=== PATIENT | female | born 1930 | race Caucasian/White ===

== ENCOUNTER 2017-06-06 10:50 | Inpatient (IN) | payer OTHER, MEDICARE ==
[~2017-06-06] VITALS: Ht 152.4 cm; Wt 72.0 kg
[~2017-06-06 10:50] MED LIST: LOTREL 5/201 CAPSULE PO; VITAMIN D2000 INTUN PO
[2017-06-06 11:26] LABS: BASOPHIL (%) 0.8 % (0-1); EOSINOPHIL (%) 3.4 % (0-5); EOSINOPHIL COUNT 0.2 K/uL (0-0.3); HEMATOCRIT 42.7 % (36.0-46.0); HEMOGLOBIN 14.3 G/DL (11.9-15.5); IMMATURE GRANULOCYTE (%) 0.2 % (0.0-0.7); LYMPHOCYTE (%) 21.6 % (15-42); LYMPHOCYTE COUNT 1.2 K/uL (1.0-2.8); MCHC 33.5 G/DL (30.0-36.0); MCV 89.5 FL (83-99); MONOCYTE (%) 6.9 % (3-12); MONOCYTE COUNT 0.4 K/uL (0-0.8); NEUTROPHIL (%) 67.1 % (45-76); NEUTROPHIL COUNT 3.6 K/uL (1.8-6.4); PLATELET COUNT 222 K/uL (156-360); RBC DIS.WIDTH-CV 13.6 % (11.8-14.6); RBC DIS.WIDTH-SD 44.7 % (39-53); RED BLOOD COUNT 4.77 M/uL (3.80-5.20); WHITE BLOOD COUNT 5.3 K/uL (4.1-10.2)
[2017-06-06 11:37] LABS: CHLORIDE 106 mEq/L (99-109); POTASSIUM 4.2 mEq/L (3.7-5.4); SODIUM 145 mEq/L (136-147)
[2017-06-06 11:39] LABS: GLUCOSE 106 mg/dL (70-99)
[2017-06-06 11:43] LABS: CREATININE 0.8 mg/dL (0.6-1.3); GFR ESTIMATE (CALCULATED) > 59 mL/min/
[2017-06-06 11:44] LABS: UREA NITROGEN (BUN) 21 mg/dL (9-23)
[2017-06-06 12:04] LABS: APPEARANCE CLEAR ((CLEAR)); BILIRUBIN NEGATIVE; BLOOD NEGATIVE; COLOR YELLOW ((YELLOW)); GLUCOSE (STRIP) NEGATIVE; KETONES 5; LEUKOCYTES NEGATIVE; NITRITE NEGATIVE; PROTEIN (STRIP) NEGATIVE; SPECIFIC GRAVITY 1.012 (1.000-1.030); UROBILINOGEN 0.2 MG/DL (0.2-1.0)
[2017-06-06] MEDS ORDERED: CALTRATE 600 +1 EAC1 PO (13:10)
[2017-06-06] MEDS ORDERED: LO-DOSE ASPIRIN81 M2 PO (13:10)
[2017-06-06] MEDS ORDERED: CALCITRATE + D1 EACH PO (13:57)
[2017-06-06 14:53] VITALS: BP 165/72
[2017-06-06 14:54] LABS: HDL CHOLESTEROL 71 MG/DL (Desirable>=50); LDL CHOLESTEROL 141 mg/dL (Desirable<100); NON-HDL CHOLESTEROL 160 mg/dL (Desirable<160); TOTAL CHOLESTEROL 231 mg/dL (Desirable<200); TRIGLYCERIDES 96 MG/DL (Normal: <150)
[2017-06-06 19:15] VITALS: BP 122/60
[2017-06-07 00:42] VITALS: BP 102/52
[2017-06-07 05:06] VITALS: BP 124/60
[2017-06-07 08:14] VITALS: BP 139/65
[2017-06-07 13:23] VITALS: BP 131/62
[2017-06-07 19:30] VITALS: BP 147/67
[2017-06-08 00:50] VITALS: BP 134/63
[2017-06-08 05:01] VITALS: BP 124/60
[2017-06-08 08:26] VITALS: BP 128/63
[2017-06-08 11:24] VITALS: BP 122/59
[2017-06-08 15:17] VITALS: BP 133/63
[2017-06-08 20:08] VITALS: BP 162/69
[2017-06-09 00:52] VITALS: BP 139/65
[2017-06-09 05:07] VITALS: BP 146/65
[2017-06-09 09:00] VITALS: BP 134/63
[2017-06-09 11:44] VITALS: BP 156/69
[2017-06-09] MEDS ORDERED: CLOPIDOGREL75 MG PO (12:07)
[2017-06-09] MEDS ORDERED: PRAVASTATIN SOD80 MG PO (12:07)
[2017-06-09] MEDS ORDERED: LOVENOX40 MG/0.4 SC (14:10)
[2017-06-09] MEDS ORDERED: ZESTRIL10 MG PO (14:11)
[2017-06-09] MEDS ORDERED: NORVASC5 MG PO (14:12)
== END 2017-06-09 13:40 | DRG 65 ==
LOC: EME 10:50 → EDOF 13:08 → 4SOUTH 13:08 → ENRESERV 13:11 → 4SOUTH 14:24
PROVIDERS: Emergency Medicine; Internal Medicine
DX: I63.9 Cerebral infarction, unspecified (principal); G81.91 Hemiplegia, unspecified affecting right dominant side; R27.8 Other lack of coordination; I10 Essential (primary) hypertension; E78.5 Hyperlipidemia, unspecified; M19.90 Unspecified osteoarthritis, unspecified site; R26.81 Unsteadiness on feet; R29.810 Facial weakness; Z79.82 Long term (current) use of aspirin; Z82.3 Family history of stroke; Z82.49 Family history of ischemic heart disease and other diseases of the circulatory system
CPT/HCPCS: 70450; 70551; 71045; 80048; 80061; 81003; 83036; 85025; 92523 GN; 93005; 93306; 93880; 99281; 99285; G0378; G8978 GP CK; G8979 GP CI; G8987 CK; G8988 GO CJ; J1650

== ENCOUNTER 2017-06-09 11:52 | Inpatient (IN) | payer OTHER, MEDICARE ==
[~2017-06-09] VITALS: Ht 152.4 cm; Wt 67.5 kg
[~2017-06-09 11:52] MED LIST changes: +CALCITRATE + D1 EACH PO; +CALTRATE 600 +1 EAC1 PO; +LO-DOSE ASPIRIN81 M2 PO
[2017-06-09] MEDS ORDERED: CLOPIDOGREL75 MG PO (12:07)
[2017-06-09] MEDS ORDERED: PRAVASTATIN SOD80 MG PO (12:07)
[2017-06-09 13:50] VITALS: BP 144/65
[2017-06-09 13:58] VITALS: BP 144/65
[2017-06-09] MEDS ORDERED: LOVENOX40 MG/0.4 SC (14:10)
[2017-06-09] MEDS ORDERED: ZESTRIL10 MG PO (14:11)
[2017-06-09] MEDS ORDERED: NORVASC5 MG PO (14:12)
[2017-06-09 23:18] VITALS: BP 134/61
[2017-06-10 05:23] VITALS: BP 121/58
[2017-06-10 08:39] LABS: HEMATOCRIT 41.5 % (36.0-46.0); HEMOGLOBIN 13.5 G/DL (11.9-15.5); MCH 28.8 PG (29.0-34.0); MCHC 32.5 G/DL (30.0-36.0); MCV 88.7 FL (83-99); PLATELET COUNT 239 K/uL (156-360); RBC DIS.WIDTH-CV 13.7 % (11.8-14.6); RBC DIS.WIDTH-SD 44.6 % (39-53); RED BLOOD COUNT 4.68 M/uL (3.80-5.20); WHITE BLOOD COUNT 6.3 K/uL (4.1-10.2)
[2017-06-10 09:08] LABS: ALBUMIN 3.9 G/DL (3.2-4.8); ALKALINE PHOSPHATASE 55 IU/L (3-129); ALT (GPT) 10 IU/L (3-49); AST (GOT) 15 IU/L (2-34); CHLORIDE 106 MEQ/L (99-109); CREATININE 0.9 MG/DL (0.6-1.3); GFR ESTIMATE (CALCULATED) > 59 mL/min/; GLUCOSE 172 mg/dL (70-99); POTASSIUM 4.4 MEQ/L (3.7-5.4); SODIUM 141 MEQ/L (136-147); TOTAL BILIRUBIN 0.5 MG/DL (0.0-1.0); TOTAL PROTEIN 6.1 G/DL (6.4-8.3); UREA NITROGEN (BUN) 23 mg/dL (9-23)
[2017-06-10 15:48] VITALS: BP 165/74
[2017-06-11 05:46] VITALS: BP 148/70
[2017-06-11 11:44] VITALS: BP 157/72
[2017-06-11 16:10] VITALS: BP 164/70
[2017-06-12 05:46] VITALS: BP 128/60
[2017-06-12 15:42] VITALS: BP 140/62
[2017-06-13 04:50] VITALS: BP 121/59
[2017-06-13 14:58] VITALS: BP 147/65
[2017-06-14 05:33] VITALS: BP 123/58
[2017-06-14 15:43] VITALS: BP 141/65
[2017-06-15 06:04] VITALS: BP 133/60
[2017-06-15 15:59] VITALS: BP 156/64
[2017-06-16 05:42] VITALS: BP 108/61
[2017-06-16 15:38] VITALS: BP 152/67
[2017-06-17 04:42] VITALS: BP 124/76
[2017-06-17 15:02] VITALS: BP 134/61
[2017-06-18 05:50] VITALS: BP 168/70
[2017-06-18 07:39] LABS: HEMATOCRIT 38.9 % (36.0-46.0); HEMOGLOBIN 12.6 G/DL (11.9-15.5); MCH 29.5 PG (29.0-34.0); MCHC 32.4 G/DL (30.0-36.0); MCV 91.1 FL (83-99); PLATELET COUNT 238 K/uL (156-360); RBC DIS.WIDTH-CV 13.6 % (11.8-14.6); RED BLOOD COUNT 4.27 M/uL (3.80-5.20); WHITE BLOOD COUNT 5.4 K/uL (4.1-10.2)
[2017-06-18 08:02] LABS: ALBUMIN 3.4 G/DL (3.2-4.8); ALKALINE PHOSPHATASE 52 IU/L (3-129); ALT (GPT) 21 IU/L (3-49); AST (GOT) 19 IU/L (2-34); CHLORIDE 107 MEQ/L (99-109); CREATININE 0.8 MG/DL (0.6-1.3); GFR ESTIMATE (CALCULATED) > 59 mL/min/; GLUCOSE 93 mg/dL (70-99); POTASSIUM 4.3 MEQ/L (3.7-5.4); SODIUM 141 MEQ/L (136-147); TOTAL BILIRUBIN 0.4 MG/DL (0.0-1.0); TOTAL PROTEIN 5.7 G/DL (6.4-8.3); UREA NITROGEN (BUN) 20 mg/dL (9-23)
[2017-06-18 15:16] VITALS: BP 149/70
[2017-06-19 06:13] VITALS: BP 124/58
[2017-06-19] MEDS ORDERED: NORVASC5 MG PO (10:02)
[2017-06-19] MEDS ORDERED: LO-DOSE ASPIRIN81 M2 PO (10:02)
[2017-06-19] MEDS ORDERED: ZESTRIL10 MG PO (10:02)
[2017-06-19] MEDS ORDERED: CLOPIDOGREL75 MG PO (10:02)
[2017-06-19] MEDS ORDERED: PRAVASTATIN SOD80 MG PO (10:02)
== END 2017-06-19 15:00 | DRG 65 ==
LOC: 3WEST 11:52 → ENPENDDIS 06-19 → 3WEST 06-19 15:00
PROVIDERS: Physical Medicine & Rehabilitation Pain Medicine
PROC: F07M7ZZ Manual Therapy Techniques Treatment of Musculoskeletal System - Whole Body (ICD-10-PCS; principal; 2017-06-09)
DX: I63.9 Cerebral infarction, unspecified (principal); G81.91 Hemiplegia, unspecified affecting right dominant side; I11.9 Hypertensive heart disease without heart failure; E78.5 Hyperlipidemia, unspecified; I65.23 Occlusion and stenosis of bilateral carotid arteries; I45.2 Bifascicular block; M19.90 Unspecified osteoarthritis, unspecified site; I49.1 Atrial premature depolarization; Z79.01 Long term (current) use of anticoagulants; Z79.82 Long term (current) use of aspirin; Z82.3 Family history of stroke
CPT/HCPCS: 80053; 85027; 92523 GN; 97110 GO; 97530 GP; 99202; J1650